=== PATIENT | male | born 1960 | race Caucasian/White ===

== ENCOUNTER 2019-06-29 19:15 | Inpatient (IN) | payer OTHER ==
[~2019-06-29] VITALS: Ht 182.9 cm; Wt 106.0 kg
[2019-06-29] MEDS ORDERED: acetaminophen 325mg tablet PO ONE (19:30)
--- NOTE | 2019-06-29 19:37 | NUR ---
PT'S WIFES NAME IS ZO SHE IS AVAILABLE BY PHONE [phone].
[2019-06-29 20:04] LABS: BASOPHILS % (AUTO) 0.1 % (0-1); EOSINOPHILS % (AUTO) 0.1 % (0-6); HEMATOCRIT 43.1 % (42.0-52.0); HEMOGLOBIN 14.7 g/dl (14.0-17.9); LYMPHOCYTES # (AUTO) 0.6 X10'3 (1.1-4.8); LYMPHOCYTES % (AUTO) 8.1 % (21-51); MEAN CORPUSCULAR HEMOGLOBIN 29.7 PG (27.0-31.0); MEAN CORPUSCULAR VOLUME 87.3 FL (78-98); MEAN PLATELET VOLUME 7.2 FL (7.4-10.4); MONOCYTES # (AUTO) 0.1 X10'3 (0-0.9); MONOCYTES % (AUTO) 1.3 % (2-12); NEUTROPHILS # (AUTO) 6.3 X10'3 (1.8-7.7); NEUTROPHILS % (AUTO) 90.4 % (42-75); PLATELET COUNT 207 X10'3 (140-440); RED BLOOD COUNT 4.93 X10'6 (4.70-6.10); RED CELL DISTRIBUTION WIDTH 13.6 % (11.5-14.5)
[2019-06-29 20:12] LABS: PARTIAL THROMBOPLASTIN TIME 29 SECONDS (22-32)
[2019-06-29 20:16] LABS: ALANINE AMINOTRANSFERASE 23 U/L (12-78); ALBUMIN 3.6 G/DL (3.4-5.0); ALKALINE PHOSPHATASE 71 IU/L (46-116); ANION GAP 11 (8-16); ASPARTATE AMINO TRANSFERASE 14 U/L (10-37); BLOOD UREA NITROGEN 13 MG/DL (7-18); BUN/CREATININE RATIO 9.3 (5.4-32.0); CALCIUM 8.8 MG/DL (8.5-10.1); CHLORIDE 105 MMOL/L (99-107); GLUCOSE 113 MG/DL (70-104); POTASSIUM 3.5 MMOL/L (3.5-5.1); SODIUM 138 MMOL/L (135-145); TOTAL CARBON DIOXIDE 22.3 MMOL/L (24-32); TOTAL PROTEIN 7.2 G/DL (6.4-8.2); eGFR 52 ML/MIN
[2019-06-29 20:17] LABS: CLARITY,URINE CLOUDY (Clear); COLOR,URINE ORANGE (Yellow); UA COLLECTION TYPE CLN CATCH MIDSTREAM
[2019-06-29 20:20] LABS: BACTERIA,URINE 1+ /HPF (Neg); CELLULAR CAST 0-4 /LPF (NEGATIVE); HYALINE CASTS 0-3 /LPF (NEGATIVE); MUCUS STRANDS FEW /LPF (Neg); SQUAMOUS EPITHELIAL CELL,UR MODERATE /LPF (FEW); WBC CLUMPS,URINE MODERATE /HPF (NEGATIVE); WBC,URINE 50-100 /HPF (0-4)
[2019-06-29] MEDS ORDERED: CefTRIAXone/D5W-Rocephin 1gm 50 ML IV ONE (20:35)
[2019-06-29] MEDS ORDERED: NO HOME MEDS (20:42)
[2019-06-29] MEDS ORDERED: ondansetron/PF 4mg/2ml inj IV PRN (22:10)
[2019-06-29] MEDS ORDERED: mag hydrox/Alum hydrox/simeth 30ml oral suspension PO PRN (22:10)
[2019-06-29] MEDS ORDERED: magnesium hydroxide 30ml (MOM) UD suspension PO PRN (22:10)
[2019-06-29] MEDS: normal saline 1000ml 1,000 ML IV SCH (22:19)
[2019-06-29 23:10] VITALS: BP 110/53
[2019-06-29] MEDS: tamsulosin 0.4mg capsule PO SCH (23:30)
[2019-06-30] VITALS (7 sets, daily range): BP systolic 87–122; BP diastolic 51–73
[2019-06-30] MEDS: acetaminophen 325mg tablet PO PRN ×3 (01:13→15:54)
[2019-06-30 05:35] LABS: BASOPHILS % (AUTO) 0.2 % (0-1); EOSINOPHILS # (AUTO) 0.1 X10'3 (0-0.9); EOSINOPHILS % (AUTO) 0.4 % (0-6); HEMATOCRIT 38.9 % (42.0-52.0); LYMPHOCYTES # (AUTO) 1.1 X10'3 (1.1-4.8); LYMPHOCYTES % (AUTO) 8.5 % (21-51); MEAN CORPUSCULAR HEMOGLOBIN 29.7 PG (27.0-31.0); MEAN CORPUSCULAR HGB CONC 33.5 g/dL (33.0-36.5); MEAN CORPUSCULAR VOLUME 88.5 FL (78-98); MEAN PLATELET VOLUME 7.3 FL (7.4-10.4); MONOCYTES # (AUTO) 0.8 X10'3 (0-0.9); MONOCYTES % (AUTO) 6.3 % (2-12); NEUTROPHILS # (AUTO) 11.4 X10'3 (1.8-7.7); NEUTROPHILS % (AUTO) 84.6 % (42-75); PLATELET COUNT 202 X10'3 (140-440); RED BLOOD COUNT 4.39 X10'6 (4.70-6.10); RED CELL DISTRIBUTION WIDTH 13.7 % (11.5-14.5); WHITE BLOOD COUNT 13.4 X10'3 (4.5-11.0)
[2019-06-30 05:50] LABS: ALANINE AMINOTRANSFERASE 19 U/L (12-78); ALBUMIN 2.9 G/DL (3.4-5.0); ALBUMIN/GLOBULIN RATIO 0.9 (1.1-1.5); ALKALINE PHOSPHATASE 52 IU/L (46-116); ANION GAP 6 (8-16); ASPARTATE AMINO TRANSFERASE 11 U/L (10-37); BILIRUBIN,TOTAL 0.7 MG/DL (0.1-1.0); BLOOD UREA NITROGEN 17 MG/DL (7-18); BUN/CREATININE RATIO 10.8 (5.4-32.0); CALCIUM 8.7 MG/DL (8.5-10.1); CHLORIDE 107 MMOL/L (99-107); CREATININE 1.58 MG/DL (0.60-1.10); GLUCOSE 117 MG/DL (70-104); POTASSIUM 3.7 MMOL/L (3.5-5.1); SODIUM 139 MMOL/L (135-145); TOTAL CARBON DIOXIDE 25.7 MMOL/L (24-32); TOTAL PROTEIN 6.1 G/DL (6.4-8.2); eGFR 45 ML/MIN
--- NOTE | 2019-06-30 06:30 | NUR ---
Patient in room ORTHO 4013. I have received report from Michelle MONTERO and had the opportunity to ask questions and assume patient care.
--- NOTE | 2019-06-30 06:37 | NUR ---
Problems reprioritized. Patient report given, questions answered & plan of care reviewed with KYLAH ESTRADA.
[2019-06-30] MEDS: CefTRIAXone/D5W-Rocephin 1gm 50 ML IV SCH (08:46)
[2019-06-30] MEDS: heparin, porcine 5000 units/ml vial SQ SCH ×2 (08:50→19:24)
[2019-06-30] MEDS: normal saline 1000ml 1,000 ML IV SCH ×2 (11:04→18:08)
--- NOTE | 2019-06-30 11:35 | NUR ---
I spoke to Dr. Steven regarding patient complaint of headache, urinary frequency, urgency, pain upon urination, and urinating in small amount at a time. He is aware that patient already on Rocephin for urine infection.
--- NOTE | 2019-06-30 17:59 | NUR ---
Paged Dr. Steven Ortho/neuro Sue RN ext [phone]. RE: Wyatt Atkins. Patient has fever this afternoon 102.8F, Tylenol given. Recheck temperature is 102.6F. He is still complaining of headache. Ice pack applied on patient's head for the headache.
--- NOTE | 2019-06-30 18:12 | NUR ---
Problems reprioritized. Patient report given, questions answered & plan of care reviewed with Crow MONTERO.
[2019-06-30] MEDS ORDERED: ibuprofen 200mg tablet PO PRN (18:25)
[2019-06-30] MEDS: lactobacillus rhamnosus 10,000 MMU CELLS/CAPSULE PO SCH (19:22)
[2019-06-30] MEDS: tamsulosin 0.4mg capsule PO SCH (20:33)
[2019-07-01] MEDS: normal saline 1000ml 1,000 ML IV SCH ×3 (04:08→22:38)
[2019-07-01] MEDS: acetaminophen 325mg tablet PO PRN ×2 (04:53→16:21)
[2019-07-01 05:54] LABS: BASOPHILS % (AUTO) 0.3 % (0-1); EOSINOPHILS % (AUTO) 0.2 % (0-6); HEMATOCRIT 38.2 % (42.0-52.0); LYMPHOCYTES # (AUTO) 0.6 X10'3 (1.1-4.8); MEAN CORPUSCULAR HEMOGLOBIN 29.7 PG (27.0-31.0); MEAN CORPUSCULAR VOLUME 87.6 FL (78-98); MEAN PLATELET VOLUME 7.4 FL (7.4-10.4); MONOCYTES # (AUTO) 0.6 X10'3 (0-0.9); MONOCYTES % (AUTO) 8.8 % (2-12); NEUTROPHILS # (AUTO) 5.9 X10'3 (1.8-7.7); NEUTROPHILS % (AUTO) 82.7 % (42-75); PLATELET COUNT 165 X10'3 (140-440); RED BLOOD COUNT 4.37 X10'6 (4.70-6.10); RED CELL DISTRIBUTION WIDTH 13.9 % (11.5-14.5); WHITE BLOOD COUNT 7.2 X10'3 (4.5-11.0)
[2019-07-01 06:00] VITALS: BP 117/59
[2019-07-01 06:04] LABS: ALANINE AMINOTRANSFERASE 19 U/L (12-78); ALBUMIN 2.6 G/DL (3.4-5.0); ALBUMIN/GLOBULIN RATIO 0.8 (1.1-1.5); ALKALINE PHOSPHATASE 60 IU/L (46-116); ANION GAP 7 (8-16); ASPARTATE AMINO TRANSFERASE 14 U/L (10-37); BILIRUBIN,TOTAL 0.5 MG/DL (0.1-1.0); BLOOD UREA NITROGEN 13 MG/DL (7-18); BUN/CREATININE RATIO 11.6 (5.4-32.0); CALCIUM 8.1 MG/DL (8.5-10.1); CHLORIDE 108 MMOL/L (99-107); CREATININE 1.12 MG/DL (0.60-1.10); GLUCOSE 116 MG/DL (70-104); POTASSIUM 3.3 MMOL/L (3.5-5.1); SODIUM 139 MMOL/L (135-145); TOTAL CARBON DIOXIDE 23.8 MMOL/L (24-32); eGFR 67 ML/MIN
--- NOTE | 2019-07-01 06:30 | NUR ---
Patient in room ORTHO 4013. I have received report from Crow and had the opportunity to ask questions and assume patient care.
[2019-07-01] MEDS: CefTRIAXone/D5W-Rocephin 1gm 50 ML IV SCH (07:17)
[2019-07-01] MEDS: lactobacillus rhamnosus 10,000 MMU CELLS/CAPSULE PO SCH ×2 (07:20→21:14)
[2019-07-01] MEDS: heparin, porcine 5000 units/ml vial SQ SCH ×2 (07:20→21:17)
[2019-07-01 10:00] VITALS: BP 108/50
[2019-07-01] MEDS ORDERED: potassium Cl 20 mEq SR tablet PO PRN (10:45)
[2019-07-01] MEDS ORDERED: potassium CL 10mEq/100ml bag 100 ML IV PRN ×2 (10:45)
[2019-07-01] MEDS ORDERED: magnesium 2GM in 50ml NS 50 ML IV PRN (10:45)
[2019-07-01] MEDS ORDERED: magnesium Cl slow-release 64mg tablet PO PRN (10:45)
[2019-07-01] MEDS ORDERED: magnesium 4gm in 100ml NS 100 ML IV PRN (10:45)
[2019-07-01] MEDS: potassium Cl 20 mEq SR tablet PO PRN ×3 (13:30→22:13)
[2019-07-01] MEDS: levoFLOXACIN-Levaquin 750MG/D5 150 ML IV SCH (13:59)
[2019-07-01 18:00] VITALS: BP 102/55
--- NOTE | 2019-07-01 18:10 | NUR ---
Problems reprioritized. Patient report given, questions answered & plan of care reviewed with Mary Alice Hidalgo
[2019-07-01] MEDS: K and/or MAG REPLACEMENT MC SCH ×2 (20:00→22:13)
[2019-07-01] MEDS: tamsulosin 0.4mg capsule PO SCH (21:16)
[2019-07-01 22:00] VITALS: BP 129/85
[2019-07-02] MEDS: acetaminophen 325mg tablet PO PRN ×2 (00:33→10:23)
[2019-07-02 05:42] LABS: BASOPHILS % (AUTO) 0.4 % (0-1); EOSINOPHILS # (AUTO) 0.1 X10'3 (0-0.9); EOSINOPHILS % (AUTO) 1.8 % (0-6); HEMATOCRIT 38.9 % (42.0-52.0); HEMOGLOBIN 13.1 g/dl (14.0-17.9); LYMPHOCYTES # (AUTO) 1.6 X10'3 (1.1-4.8); MEAN CORPUSCULAR HEMOGLOBIN 29.6 PG (27.0-31.0); MEAN CORPUSCULAR HGB CONC 33.6 g/dL (33.0-36.5); MEAN CORPUSCULAR VOLUME 88.2 FL (78-98); MEAN PLATELET VOLUME 7.6 FL (7.4-10.4); MONOCYTES # (AUTO) 0.8 X10'3 (0-0.9); MONOCYTES % (AUTO) 15.2 % (2-12); NEUTROPHILS # (AUTO) 2.7 X10'3 (1.8-7.7); NEUTROPHILS % (AUTO) 51.6 % (42-75); PLATELET COUNT 184 X10'3 (140-440); RED BLOOD COUNT 4.41 X10'6 (4.70-6.10); WHITE BLOOD COUNT 5.2 X10'3 (4.5-11.0)
[2019-07-02 05:55] LABS: ALANINE AMINOTRANSFERASE 25 U/L (12-78); ALBUMIN 2.6 G/DL (3.4-5.0); ALBUMIN/GLOBULIN RATIO 0.7 (1.1-1.5); ALKALINE PHOSPHATASE 61 IU/L (46-116); ANION GAP 9 (8-16); ASPARTATE AMINO TRANSFERASE 15 U/L (10-37); BILIRUBIN,TOTAL 0.4 MG/DL (0.1-1.0); BLOOD UREA NITROGEN 11 MG/DL (7-18); BUN/CREATININE RATIO 11.2 (5.4-32.0); CALCIUM 8.3 MG/DL (8.5-10.1); CHLORIDE 110 MMOL/L (99-107); CREATININE 0.98 MG/DL (0.60-1.10); GLUCOSE 99 MG/DL (70-104); MAGNESIUM 1.9 MG/DL (1.5-2.4); POTASSIUM 3.9 MMOL/L (3.5-5.1); SODIUM 143 MMOL/L (135-145); TOTAL CARBON DIOXIDE 23.8 MMOL/L (24-32); TOTAL PROTEIN 6.3 G/DL (6.4-8.2); eGFR 79 ML/MIN
--- NOTE | 2019-07-02 06:19 | NUR ---
Patient in room ORTHO 4013. I have received report from KYLAH VILLALBA and had the opportunity to ask questions and assume patient care.
[2019-07-02 06:56] VITALS: BP 109/50
[2019-07-02] MEDS: K and/or MAG REPLACEMENT MC SCH (08:00)
[2019-07-02] MEDS: levoFLOXACIN-Levaquin 750MG/D5 150 ML IV SCH (08:05)
[2019-07-02] MEDS: heparin, porcine 5000 units/ml vial SQ SCH (08:05)
[2019-07-02] MEDS: lactobacillus rhamnosus 10,000 MMU CELLS/CAPSULE PO SCH (08:05)
[2019-07-02] MEDS: normal saline 1000ml 1,000 ML IV SCH (08:11)
[2019-07-02 10:41] VITALS: BP 111/72
[2019-07-02 11:10] LABS: CLARITY,URINE CLEAR (Clear); COLOR,URINE YELLOW (Yellow); GLUCOSE, URINE NEGATIVE (Neg); KETONES,URINE NEGATIVE (Neg); LEUKOCYTE ESTERASE ,URINE NEGATIVE (Neg); NITRITES, URINE NEGATIVE (Neg); OCCULT BLOOD,URINE NEGATIVE (Neg); PROTEIN,URINE NEGATIVE (Neg)
[2019-07-02 11:12] LABS: UA COLLECTION TYPE NON-SPECIFIED
[2019-07-02] MEDS ORDERED: LEVO750T46 PO (11:16)
[2019-07-02] MEDS ORDERED: tamsulosin capsule PO (11:16)
--- NOTE | 2019-07-02 12:33 | NUR ---
Patient is alert and oriented with no s/s of acute distress and no complaints. Discussed with patient discharge instructions and new prescriptions. Patient verbalized understanding of discharge teaching. Patient dc'd with all personal belongings escorted in wheelchair by x1 pct.
[2019-07-03] MEDS ORDERED: levoFLOXACIN 750MG TABLET PO SCH (08:00)
== END 2019-07-02 12:49 | disposition home or self-care (01) | DRG 871 ==
LOC: ER 19:17 → ED HOLD 22:08 → ORTHO 4S 22:57
PROVIDERS: ADMIT Internal Medicine; ATTEND Family Medicine
DX: A41.9 Sepsis, unspecified organism (principal); N17.0 Acute kidney failure with tubular necrosis; N41.0 Acute prostatitis; N39.0 Urinary tract infection, site not specified; N12 Tubulo-interstitial nephritis, not specified as acute or chronic; Z87.891 Personal history of nicotine dependence; Z20.828 Contact with and (suspected) exposure to other viral communicable diseases
CPT/HCPCS: 36415; 71045; 74176; 80053; 81001; 81003; 83605; 83735; 84145; 85025; 85610; 85730; 87040; 87081; 87088; 87635; 96365; 99285; G0378; J0696; J1644; J1956; J7030

== ENCOUNTER 2019-07-31 21:03 | Emergency (ER) | payer OTHER ==
[~2019-07-31] VITALS: Ht 182.9 cm; Wt 103.4 kg
[~2019-07-31 21:03] MED LIST: LEVO750T46 PO; tamsulosin capsule PO
[2019-07-31] MEDS ORDERED: LIDOcaine 5% patch TP STA (23:25)
[2019-07-31] MEDS ORDERED: ketorolac tromethamine 15mg/ml inj. IM ONE (23:25)
[2019-07-31] MEDS ORDERED: CYCL-1 PO (23:52)
[2019-07-31] MEDS ORDERED: IBUP-1986 PO (23:52)
[2019-07-31] MEDS ORDERED: LIDO700A32 TOP (23:52)
[2019-08-01 00:03] VITALS: BP 132/81
== END 2019-08-01 00:04 | disposition home or self-care (01) ==
LOC: ER 21:04
DX: S46.911A Strain of unspecified muscle, fascia and tendon at shoulder and upper arm level, right arm, initial encounter (principal); M54.2 Cervicalgia; Z88.8 Allergy status to other drugs, medicaments and biological substances; Z79.899 Other long term (current) drug therapy; V89.2XXA Person injured in unspecified motor-vehicle accident, traffic, initial encounter; Y93.89 Activity, other specified; Y92.488 Other paved roadways as the place of occurrence of the external cause; Y99.8 Other external cause status
CPT/HCPCS: 73030; 96372; 99283; J1885